=== PATIENT | male | born 1995 | race Caucasian/White ===

== ENCOUNTER 2023-04-25 17:31 | Emergency (ER) | payer BC, SELFPAY ==
--- NOTE | ~2023-04-25 | CT_ITS ---
EXAMINATION: CT abdomen pelvis w con DATE: 04/25/2023 21:46 INDICATION: abdominal pain TECHNIQUE: Computed tomography (CT) of the abdomen and pelvis was performed thorax and atelectasis in travenous contrast. Automated exposure control and iterative reconstruction technique were employed. The dose-length product was 548.57 mGy-cm. COMPARISON: None. FINDINGS: Lower thorax: Dependent atelectasis Liver: Normal. Biliary/Gallbladder: Gallbladder is normal. No bile duct dilation. Pancreas: No mass or duct dilation. Spleen: Normal. Adrenals:No mass. Kidneys: No suspicious mass, obstructing stone, or hydronephrosis. Simple left renal cysts. GI tract: Mild distal esophageal and gastric wall edema. No small or large bowel dilation. Appendix n ot visualized, likely surgically absent. Mesentery/Peritoneum: No ascites, mass, or free air. Retroperitoneum: No mass. Pelvis: Pelvic organs are within normal limits. Soft Tissues: Soft tissues and body wall unremarkable. Bones: No acute osseous finding. IMPRESSION: Mild esophagitis/gastritis. No other acute abdominopelvic process detected. Reviewed, dictated and finalized at location K. [employer]
[2023-04-25 17:33] VITALS: BP 132/54; PULSE 98; RESP 18; TEMP 36.6; O2SAT 99
[2023-04-25 17:47] LABS: Basophils Percent Auto 0.2 % (0.2-1.2); Eosinophils Absolute Auto 0.1 K/mm3 (0-0.3); Eosinophils Percent Auto 1.5 % (0-4.4); Hematocrit 45.4 % (42.0-52.0); Hemoglobin 14.9 g/dL (14.0-18.0); Immature Granulocyte Absolute 0.01 K/mm3 (0.00-0.031); Immature Granulocyte Percent A 0.1 % (0-0.5); Lymphocytes Absolute Auto 3.28 K/mm3 (0.9-3.2); Lymphocytes Percent Auto 37.9 % (18.3-44.2); Mean Corpuscular HGB Conc 32.8 g/dl (32-36); Mean Corpuscular Hemoglobin 29.4 pg (26-34); Mean Corpuscular Volume 89.5 fl (80-100); Mean Platelet Volume 11.2 fl (7.4-10.4); Monocytes Absolute Auto 0.7 K/mm3 (0.1-0.6); Monocytes Percent Auto 8.3 % (2.6-8.5); Neutrophils Absolute Auto 4.5 K/mm3 (1.3-6.7); Platelet Count Result 223 k/mm3 (150-375); Red Blood Count 5.07 M/mm3 (4.6-6.20); Red Cell Distribution Width 13.1 % (11.5-14.5); White Blood Count 8.7 K/mm3 (4.5-10.0)
[2023-04-25 17:58] LABS: Alanine Aminotransferase 31 U/L (6-50); Albumin Level 4.9 g/dL (3.5-5.1); Alkaline Phosphatase 56 U/L (38-126); Anion Gap 14 mmol/L (8-16); Aspartate Amino Transferase 36 U/L (17-59); Bilirubin,Total 0.7 mg/dL (0.2-1.3); Blood Urea Nitrogen 15 mg/dL (9-20); Calcium 9.7 mg/dL (8.4-10.2); Carbon Dioxide 23 mmol/L (22-30); Chloride 103 mmol/L (98-107); Estimated CRCL calculation 109 ml/min; Estimated Glomerular Filt Rate > 60; Glucose 85 mg/dL (65-110); Lipase 114 U/L (23-300); Potassium 3.9 mmol/L (3.4-5.0); Sodium 140 mmol/L (137-145)
[2023-04-25] MEDS: PANTOPRAZOLE SODIUM IV 40 MG VIAL IV PUSH (21:26)
[2023-04-25 21:45] LABS: Appearance Urine Clear (Clear); Bacteria Urine None Seen /hpf; Bilirubin Urine Negative (Negative); Blood Urine Negative (Negative); Color Urine Dark Yellow (Yellow); Glucose Urine UA Negative (Negative); Ketones Urine 2+ mg/dL (Negative); Leukocyte Esterase Ur Negative LEU/UL (Negative); Need Manual Microscopic Reviewed; Nitrate Urine Negative (Negative); Protein Urine Trace mg/dL (Negative); RBC Urine 0-2 /hpf (0-2); Squamous Epithelial Cell Urine None seen /hpf (Few); WBC Urine 0-5 /hpf; pH Urine 5.5 (5.0-9.0)
[2023-04-25 21:49] LABS: Add Urine Microscopic? YES; Specific Grav Ur 1.037 (1.001-1.035)
--- NOTE | 2023-04-25 22:03 | ED.GENADULT ---
HPI - General Adult General Chief complaint: Abdominal Pain Stated complaint: Vomitting Time Seen by Provider: 04/25/23 20:52 History of Present Illness HPI narrative: Patient is a 28-year-old gentleman who presents to emergency department with chief complaint of nausea vomiting every other day and epigastric pain. Patient reports that he has had weight loss reports that today does have prior history of alcohol abuse but has not used in several months. Patient reports no prior history of pancreatitis reports that he is currently not using alcohol. Patient reports he does not have a primary care provider and has not had endoscopy by GI Related Data Allergies Allergy/AdvReac Type Severity Reaction Status Date / Time No Known Allergies Allergy Unknown Unverified 03/09/09 13:37 Review of Systems Review of Systems: A 10 system review of systems was completed on the patient and is negative except for what is stated in the HPI. Nursing and ancillary documentation was reviewed. Exam Narrative: GENERAL: Well-appearing, well-nourished, and in no acute distress. HEAD: Normocephalic, atraumatic. EYES: PERRLA and EOMI. ENT: Nares clear, no rhinorrhea or epistaxis. Mucous membranes moist. NECK: Supple. CHEST: Clear to auscultation. No respiratory distress. HEART: Regular rate and rhythm. No murmur heard. Normal peripheral pulses. ABDOMEN: Soft, tenderness to palpation in the epigastric region, nondistended, normal active bowel sounds. EXTREMITIES: Normal range of motion. No edema. SKIN: Warm, dry, no rash. NEURO: No focal deficits. Alert and oriented x3. PSYCH: Normal mood and affect. Course Vital Signs Vital signs: Vital Signs Temperature 36.6 C 04/25/23 17:33 Pulse Rate 98 04/25/23 17:33 Respiratory Rate 18 04/25/23 17:33 Blood Pressure 132/54 L 04/25/23 17:33 Pulse Oximetry 99 04/25/23 17:33 Oxygen Delivery Room Air 04/25/23 17:33 Temperature 36.6 C 04/25/23 17:33 Pulse Rate 98 04/25/23 17:33 Respiratory Rate 18 04/25/23 17:33 Blood Pressure 132/54 L 04/25/23 17:33 Pulse Oximetry 99 04/25/23 17:33 Oxygen Delivery Room Air 04/25/23 17:33 Medical Decision Making MDM Narrative Medical decision making narrative: differential diagnosis includes pancreatitis, gastritis, colitis, choledocholithiasi s, laboratory studies were obtained on the patient which showed a normal CBC electrolytes within normal limits including liver enzymes and lipase were normal. Urinalysis showed specific gravity of 1.0372+ ketones otherwise was within normal limits. CT scan of the abdomen and pelvis revealed: Mild esophagitis/gastritis. No other acute abdominopelvic process detected. Vital Signs Vital Signs: Vital Signs Temperature 36.6 C 04/25/23 17:33 Pulse Rate 98 04/25/23 17:33 Respiratory Rate 18 04/25/23 17:33 Blood Pressure 132/54 L 04/25/23 17:33 Pulse Oximetry 99 04/25/23 17:33 Oxygen Delivery Room Air 04/25/23 17:33 Temperature 36.6 C 04/25/23 17:33 Pulse Rate 98 04/25/23 17:33 Respiratory Rate 18 04/25/23 17:33 Blood Pressure 132/54 L 04/25/23 17:33 Pulse Oximetry 99 04/25/23 17:33 Oxygen Delivery Room Air 04/25/23 17:33 Lab Data 04/25/23 17:39 04/25/23 17:39 Labs: Lab Results 04/25/23 04/25/23 Range/Units 17:39 21:30 WBC 8.7 (4.5-10.0) K/mm3 RBC 5.07 (4.6-6.20) M/mm3 Hgb 14.9 (14.0-18.0) g/dL Hct 45.4 (42.0-52.0) % MCV 89.5 (80-100) fl MCH 29.4 (26-34) pg MCHC 32.8 (32-36) g/dl RDW 13.1 (11.5-14.5) % Plt Count 223 (150-375) k/mm3 MPV 11.2 H (7.4-10.4) fl Immature Gran % (Auto) 0.1 (0-0.5) % Neut % (Auto) 52.0 (45.5-73.1) % Lymph % (Auto) 37.9 (18.3-44.2) % [place] % (Auto) 8.3 (2.6-8.5) % Eos % (Auto) 1.5 (0-4.4) % Baso % (Auto) 0.2 (0.2-1.2) % Lymph # (Auto) 3.28 H (0.9-3.2) K/mm3 [place] # (Auto)
== END 2023-04-25 22:23 | disposition home or self-care (01) ==
PROVIDERS: Student in an Organized Health Care Education/Training Program; Emergency Provider Emergency Medicine; PCP Physician Assistant
DX: K29.70 Gastritis, unspecified, without bleeding (principal)
CPT/HCPCS: 36415; 74177; 80053; 81001; 83690; 85025; 96374; 99284; C9113; Q9967

== ENCOUNTER 2024-01-11 09:41 | Emergency (ER) | payer BC, SELFPAY ==
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
[2024-01-11 09:51] VITALS: BP 128/78; PULSE 96; RESP 16; TEMP 36.7; O2SAT 100
[2024-01-11 10:00] VITALS: BP 132/74; PULSE 80; RESP 16; TEMP 36.6; O2SAT 100
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
[2024-01-11 10:27] LABS: Basophils Percent Auto 0.2 % (0.2-1.2); Eosinophils Absolute Auto 0.1 K/mm3 (0-0.3); Eosinophils Percent Auto 0.8 % (0-4.4); Hematocrit 41.7 % (42.0-52.0); Hemoglobin 14.2 g/dL (14.0-18.0); Immature Granulocyte Absolute 0.07 K/mm3 (0.00-0.031); Immature Granulocyte Percent A 0.6 % (0-0.5); Mean Corpuscular HGB Conc 34.1 g/dl (32-36); Mean Corpuscular Hemoglobin 30.5 pg (26-34); Mean Corpuscular Volume 89.5 fl (80-100); Mean Platelet Volume 10.5 fl (7.4-10.4); Monocytes Percent Auto 8.2 % (2.6-8.5); Neutrophils Absolute Auto 7.4 K/mm3 (1.3-6.7); Neutrophils Percent Auto 61.2 % (45.5-73.1); Platelet Count Result 230 k/mm3 (150-375); Red Blood Count 4.66 M/mm3 (4.6-6.20); Red Cell Distribution Width 12.7 % (11.5-14.5); White Blood Count 12.1 K/mm3 (4.5-10.0)
[2024-01-11 10:40] LABS: INR 0.8; Prothrombin Time 11.7 Seconds (11.1-14.7)
[2024-01-11 10:41] LABS: Partial Thromboplastin Time 30.5 Seconds (22.3-36.8)
[2024-01-11 10:42] LABS: Alanine Aminotransferase 58 U/L (6-50); Albumin Level 4.6 g/dL (3.5-5.1); Alkaline Phosphatase 65 U/L (38-126); Anion Gap 12 mmol/L (4-12); Aspartate Amino Transferase 52 U/L (17-59); Bilirubin,Total 0.3 mg/dL (0.2-1.3); Blood Urea Nitrogen 14 mg/dL (9-20); Calcium 9.3 mg/dL (8.4-10.2); Carbon Dioxide 31 mmol/L (22-30); Chloride 106 mmol/L (98-107); Estimated CRCL calculation 102 ml/min; Estimated Glomerular Filt Rate > 60; Glucose 106 mg/dL (65-110); Sodium 149 mmol/L (137-145)
--- NOTE | 2024-01-11 11:00 | PC.NURSE ---
ISP at bedside with pt
[2024-01-11 11:03] VITALS: BP 135/71; PULSE 76; RESP 16; TEMP 36.6; O2SAT 96
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
== END 2024-01-11 12:10 | disposition left against medical advice (07) ==
PROVIDERS: Emergency Provider Emergency Medicine; PCP Physician Assistant
DX: Z04.1 Encounter for examination and observation following transport accident (principal); F10.129 Alcohol abuse with intoxication, unspecified; Y90.9 Presence of alcohol in blood, level not specified; S90.02XA Contusion of left ankle, initial encounter; V48.5XXA Car driver injured in noncollision transport accident in traffic accident, initial encounter; W23.0XXA Caught, crushed, jammed, or pinched between moving objects, initial encounter
CPT/HCPCS: 36415; 70450; 71260; 72125; 73610; 73630; 74177; 80053; 85025; 85610; 85730; 93971; 99284; Q9967